=== PATIENT | female | born 1950 | race Caucasian/White ===

== ENCOUNTER 2017-03-14 05:41 | Day surgery (SDC) | payer OTHER, MEDICARE ==
[2017-03-14] MEDS ORDERED: SCOPOLAMINE HYDROBROMIDE 1.5 MG PATCH TD ONE (06:00)
[2017-03-14] MEDS ORDERED: LR 1,000 ML IV ONE (06:14)
[2017-03-14] MEDS ORDERED: LIDOCAINE/BUP/DURAMORPH 15 ML SYR IF ONE (06:38)
[2017-03-14] MEDS ORDERED: EPINEPHrine 30 MG/30 ML MDV ONE (06:38)
[2017-03-14] MEDS ORDERED: LIDOCAINE/BUPIVICAINE 10 ML SYR ONE (06:38)
[2017-03-14] MEDS ORDERED: DEXAMETHASONE 4 MG/ML VIAL ONE ×2 (06:58)
[2017-03-14] MEDS ORDERED: LIDOCAINE 2% 5 ML SDV ONE ×2 (06:58→06:59)
[2017-03-14] MEDS ORDERED: ROPIVACAINE HCL 150 MG/30 ML INJ ONE (06:58)
[2017-03-14] MEDS ORDERED: ONDANSETRON 4 MG/2 ML VIAL ONE (06:58)
[2017-03-14] MEDS ORDERED: fentaNYL 100 MCG/2 ML INJ ONE (06:59)
[2017-03-14] MEDS ORDERED: PROPOFOL 200 MG/20 ML VIAL ONE (06:59)
[2017-03-14] MEDS ORDERED: ceFAZolin 2 GM/DEXTROSE 100 ML IV ONE (07:00)
[2017-03-14] MEDS ORDERED: MIDAZOLAM 2 MG/2 ML VIAL ONE (07:11)
[2017-03-14] MEDS ORDERED: epHEDrine SULFATE 10 MG/ML SYR ONE (07:40)
--- NOTE | 2017-03-14 11:42 | GOP ---
[f rep st] OPERATIVE REPORT DATE OF OPERATION: 03/14/2017 SURGEON: Zbigniew Pabon MD ANESTHESIA: General with interscalene block. ANESTHESIOLOGIST: Dr. Cuadra. PREOPERATIVE DIAGNOSIS: Massive rotator cuff tear with superior migration of the humeral head, impi ngement. POSTOPERATIVE DIAGNOSIS: Right shoulder massive rotator cuff tear with superior migration, impingem ent, and degenerative biceps tendon. PROCEDURE PERFORMED: 1. Arthroscopic superior capsular reconstruction with a dermal allograft. CPT code 18271. 2. Arthroscopic subacromial decompression. CPT code 82621. 3. Mini open subpectoral biceps tenodesis. CPT code 74787. FINDINGS: 1. Intact and normal humeral head and glenoid. 2. Intact anterior labrum, normal labrum anterior, inferior and posterior. 3. Degenerative biceps tendon with fraying and degeneration in the intra-articular portion. 4. Massive retracted rotator cuff tear to the medial glenoid. 5. Moderate subacromial bursitis. 1. Downsloping anterior acromion. INDICATIONS: The patient is a 66-year-old with history of a massive rotator cuff tear. Imaging dem onstrated a retracted tear with significant atrophy. There was superior migration as well. The pat ient had options discussed. Given these symptoms, she desired to go ahead with the arthroscopy and superior capsule reconstruction in the hope of salvaging this and giving her some potential for cent ering the humeral head. The patient understood the potential risks and benefits of the procedure, i ncluding any other necessary potential procedure including a potential biceps procedure, a subacromi al decompression. The patient understood the potential risks and benefits, including but not limite d to, bleeding, infection, persistent pain, stiffness, anesthetic risks. DESCRIPTION OF PROCEDURE: The patient was taken to the operating room. After undergoing successful general anesthesia and interscalene block, the patient was placed in the beach chair position. Rig ht upper extremity was prepped and draped in the usual sterile manner. Anatomic landmarks were iden tified. The anterior and posterior portal sites were injected with 0.25% Marcaine and 1% lidocaine. The subacromial space injected with the same. Posterior portal was made. The arthroscope was fox jonathon in the joint. With the arthroscope in the joint, the anterior portal was made as well. The pro be was placed, and the findings are described above. The massive tear of the rotator cuff was ident ified. The biceps tendon pathology was identified as well. This was significant pathology and like ly a pain generator. Thus, a biceps tenodesis was done. Anterior axillary incision was made. The pectoralis was reflected superiorly. Hohmann retractor was placed. The bicipital groove was curett ed. A 2.9 mm JuggerKnot suture anchor was placed. This had two #2 MaxBraid sutures. These were pl aced through and around the biceps tendon. The biceps was cut above this, and then the biceps was r eleased at its attachment to the superior labrum. The superior labrum was very degenerative. This was debrided back all way to the glenoid bone, and the area was decorticated. Next, the subacromial decompression was done beginning anterolateral and from anterolateral to anteromedial. The anterio r acromion was shaved down. This was significant downsloping anterior acromion. Following this, a lateral cannula was placed and an anterolateral cannula. Next, a series of 3 anchors were placed th rough the 1.5 mm JuggerKnot suture anchors. These were placed medially on the superior glenoid. Th cris were placed just several millimeters off the edge of the glenoid using 1.5 mm JuggerKnot suture anchors with #2 MaxBraid sutures. Subsequent to this, 2 of the lateral anchors were placed on the g reater tuberosity. These were placed on the medial aspect of the greater tuberosity at approximatel y the medial edge of the greater tuberosity. The sutures were passed through. These were then brou ght out. These were 2.9 mm JuggerKnot suture anchors. Next, the dermal allograft was brought out. This was from [employer]. The allograft was then cut medially. The anchors were 17 mm from ant erior to posterior and laterally 17 mm across. Distance in the posterior aspect from the glenoid to the greater tuberosity anchor sites was 24 mm and anterior it was 27 mm. The tissue was then cut. The sutures were pre-punctured with the penetrator device. First, the 3 medial anchors were placed through 3 medial holes along the capsular tissue. These were pre-tied. Next, some holes were done laterally and also in the midportion anteriorly and posteriorly. Some passing sutures were passed around the lateral aspect to shuttle the suture through from the anchors laterally. Next, the tissu e through the cannula was then pushed through and the knots tied down medially. These were tied opal n with standard arthroscopic knot-tying technique. These were tied down. The sutures were cut. Ne xt, the lateral anchors were tied. These were the 2.9 mm anchors with the #2 MaxBraid suture. The anchors were placed through the lateral hole a centimeter away from the lateral edge, and these were tied down, both the anterior and posterior anchors. The sutures were then brought over the lateral aspect in a crossing fashion with a lateral row that was placed with the [place] PEEK anchor latera lly. This provided excellent fixation of the superior capsular reconstruction tissue of the graft. Next, the sutures were placed through both anterior and posterior in the midportion with the pre-pu nctured holes. A #2 FiberWire suture was passed through and tied posterior to the infraspinatus. T his was tied down then anteriorly through remnant of the anterior supraspinatus. These were then ti ed down. This provided an excellent coverage over the entire superior head. The area was then irri gated. The superior capsular reconstruction was completed. The portal sites closed using 3-0 nylon suture. The anterior axillary incision closed using 3-0 Monocryl followed by running 3-0 Prolene f ollowed by Dermabond. The subacromial space injected with 0.25% Marcaine, 1%lidocaine, 5 mg of Dura morph. The patient had a sterile dressing. The patient was awakened, taken to the recovery room in stable condition. Sponge, instrument, and needle counts were correct. CLAY DRY PRESS OPERATOR: Dr. Alonso Arthur. It should be noted, no qualified resident available. First a ssistant was necessary to assist with the procedure. PATIENT POSITION: Beach chair. PLAN: The patient to undergo physical therapy according to rotator cuff protocol. 6 weeks in a sli ng, passive motion only. /[id number]/MODL
== END 2017-03-14 15:20 | disposition home or self-care (01) ==
LOC: FSGY 05:41
PROVIDERS: ATTEND Orthopaedic Surgery Sports Medicine
DX: M75.121 Complete rotator cuff tear or rupture of right shoulder, not specified as traumatic (principal); M75.41 Impingement syndrome of right shoulder; M75.21 Bicipital tendinitis, right shoulder; E11.9 Type 2 diabetes mellitus without complications; Z88.2 Allergy status to sulfonamides; Z79.84 Long term (current) use of oral hypoglycemic drugs
CPT/HCPCS: C1713; J0690; J1100; J2250; J2405; J2704; J2795; J3010; Q4126